=== PATIENT | female | born 1965 | race Hispanic/Latino ===

== ENCOUNTER 2021-02-10 09:00 | Outpatient (CLI) | payer OTHER ==
--- NOTE | 2021-02-10 14:18 | Mammography Report ---
DEXA BONE DENSITY SCAN INDICATION / CLINICAL INFORMATION: SCREENING FOR OSTEOPOROSIS. 55 years Female COMPARISON: 04/06/2016 LUMBAR SPINE, L1-L4: - Bone mineral density (BMD) = 1.057 g/cm2. - T-score = -0.8 - Z-score = 0.5 Change (%) since most recent prior (if available): -1.9 LEFT HIP, NECK : - Bone mineral density (BMD) = 0.817 g/cm2. - T-score = -0.9 - Z-score = 0.0 Change (%) since most recent prior (if available): -7.0 IMPRESSION: 1. WHO Classification: Normal bone density. Fracture Risk: Not Increased. 2. 10-Year Fracture Risk (FRAX) = Major Osteoporotic Not reported.% / Hip: Not reported.% FRAX generally not reported for patients with normal or osteoporotic BMD, in gmp-gmzjubu-fytkyed kilo ents younger than age 50, or in patients undergoing pharmacotherapy BMD Reporting Guidelines (ISCD, 2015) BMD Reporting in Postmenopausal Women and in Men Age 50 and Older - T-scores are preferred. - The WHO densitometric classification is applicable. BMD Reporting in Females Prior to Menopause and in Males Younger Than Age 50 - Z-scores, not T-scores, are preferred. This is particularly important in children. - A Z-score of -2.0 or lower is defined as below the expected range for age, and a Z-score above -2.0 is within the expected range for age. - Osteoporosis cannot be diagnosed in men under age 50 on the basis of BMD alone. - The WHO diagnostic criteria may be applied to women in the menopausal transition. http://www.iscd.org/official-positions/2126-uxls-zyqlukmg-positions-adult/ Signer Name: Vadim Conroy MD Signed: 02/10/2021 2:14 PM Workstation Name: [id number]
== END 2021-02-10 09:01 | disposition home or self-care (01) ==
LOC: SPVWC 09:00
DX: Z13.820 Encounter for screening for osteoporosis (principal); Z78.0 Asymptomatic menopausal state
CPT/HCPCS: 77080